=== PATIENT | male | born 1985 | race Caucasian/White ===

== ENCOUNTER 2017-06-29 22:05 | Emergency (ER) | payer OTHER ==
[~2017-06-29] VITALS: Ht 162.6 cm; Wt 46.4 kg
[2017-06-29 22:15] VITALS: BP 127/93
[2017-06-29 23:02] LABS: HEMATOCRIT 43.3 % (39.2-51.8); HEMOGLOBIN 14.9 g/dL (13.7-18.0)
[2017-06-29 23:14] LABS: BLOOD UREA NITROGEN 14 mg/dL (7-18)
== END 2017-06-29 23:56 | disposition home or self-care (01) ==
LOC: ED 23:18
DX: R07.89 Other chest pain (principal); M79.1 Myalgia; M25.512 Pain in left shoulder; R11.2 Nausea with vomiting, unspecified; R42 Dizziness and giddiness; R63.4 Abnormal weight loss
CPT/HCPCS: 36415; 71020; 80048; 82550; 85025; 93005; 99285

== ENCOUNTER 2020-01-09 14:07 | Inpatient (IN) | payer OTHER ==
[~2020-01-09] VITALS: Ht 167.6 cm; Wt 52.8 kg
--- NOTE | 2020-01-09 14:38 | NUR ---
TASK RN NOTE: PT PRESENTS TO ED WITH LT SIDED RIB PAIN THAT RADATES UP TO LEFT SHOULDER WITH DEEP INSPIRATION X3 DAYS. WENT TO [facility] THRU AND FOUND TO BE 85% ON RA. WITH SUPPLEMENTAL O2 VIA NC PT REPORTS DECREASE IN SIDE PAIN. NAD NOTED AT THIS TIME. AWAITING ERMD EVAL.
[2020-01-09] MEDS ORDERED: SODIUM CHLORIDE FLUSH 10ML SYR IVF ONE (15:00)
[2020-01-09 15:49] LABS: ALANINE AMINOTRANSFERASE 64 U/L (12-78); ALBUMIN 3.5 g/dL (3.4-5.0); ANION GAP 11 mmol/L (5-15); CALCIUM 7.8 mg/dL (8.5-10.1); CHLORIDE 105 mmol/L (98-107); CREATININE 0.89 mg/dL (0.7-1.3)
[2020-01-09 15:56] LABS: ALKALINE PHOSPHATASE 66 U/L (45-117); BILIRUBIN,TOTAL 0.8 mg/dL (0.2-1.0); TOTAL PROTEIN 7.7 g/dL (6.4-8.2)
--- NOTE | 2020-01-09 16:27 | NUR ---
CHANEL AT BEDSIDE COMPLETING EKG. PT NOTED TO BE CONSISTENTLY 88 PERCENT ON RA. PLACED BACK ON 2L NC. AWAITING CT
[2020-01-09 16:28] LABS: MEAN CORPUSCULAR HEMOGLOBIN 33.3 pg (27.5-34.5); MEAN CORPUSCULAR HGB CONC 33.2 g/dL (33.2-36.2); MEAN CORPUSCULAR VOLUME 100.3 fL (81-97); PLATELET COUNT 78 x10^3/uL (130-400); RED CELL DISTRIBUTION WIDTH 14.2 % (9.4-14.8)
[2020-01-09 16:39] LABS: MD YES
[2020-01-09 16:43] LABS: BAND#(MANUAL) 0.63 x10^3/uL; BANDS%(MANUAL) 5 % (0-7); BASOS#(MANUAL) 0.25 x10^3/uL (0-0.1); BASOS% (MANUAL) 2 % (0-1); LYMPH#(MANUAL) 1.26 x10^3/uL (1-3.4); LYMPHS% (MANUAL) 10 % (22-44); METAMYELOCYTES# (MANUAL) 0.25 x10^3/uL (0-0); METAMYELOCYTES% (MANUAL) 2 % (0-1); MONOS#(MANUAL) 0.38 x10^3/uL (0.3-2.7); MONOS% (MANUAL) 3 % (2-9); SEG#(MANUAL) 9.83 x10^3/uL (1.8-6.8); SEGS% (MANUAL) 78 % (42-75)
[2020-01-09 16:46] LABS: <PLATELET ESTIMATE> DECREASED
[2020-01-09 16:47] LABS: <PLT MORPHOLOGY> NORMAL PLT MORPH
[2020-01-09 16:49] LABS: OVALOCYTES 1+
--- NOTE | 2020-01-09 16:57 | NUR ---
SPOKE WITH DR CHADWICK REGARDING STARTING SEPSIS PROTOCOL. PT AWAITING CT AND MD AWAITING RESULTS OF THAT. BELIEVES IT IS COVID AND DOES NOT WANT TO GIVE FLUIDS COVID PTS ARE FOUND TO DO BETTER KEPT DRY. ADDITIONALLY DR CHADWICK AWAITING CT TO START ANTIBIOTICS.
[2020-01-09] MEDS ORDERED: DOXYCYCLINE 100 MG in DEXTROSE 5% 250 ML IV ONE (17:00)
[2020-01-09] MEDS ORDERED: CEFTRIAXONE PMX 1GM/50ML 50 ML IV ONE (17:00)
[2020-01-09 17:03] LABS: PROTIME 10.2 Seconds (9.6-11.5)
[2020-01-09] MEDS ORDERED: CEFTRIAXONE PMX 1GM/50ML 50 ML ONE (17:08)
[2020-01-09] MEDS ORDERED: OMNIPAQUE 350 MG/ML, 100ML BOTTLE ONE (17:24)
[2020-01-09] MEDS ORDERED: MAGNESIUM SULFATE PMX 2GM/50ML 50 ML ONE (17:59)
[2020-01-09] MEDS ORDERED: MAGNESIUM SULFATE PMX 2GM/50ML 50 ML IV ONE (18:00)
[2020-01-09] MEDS ORDERED: CLON2TAB PO (18:12)
[2020-01-09] MEDS ORDERED: BUPR1FIL3 SL (18:13)
--- NOTE | 2020-01-09 18:50 | NUR ---
REPORT FROM CAMILLE SARABIA. ASSUMING CARE AT THIS TIME.
--- NOTE | 2020-01-09 18:55 | NUR ---
REPORT TO UMANG OBRIEN
--- NOTE | 2020-01-09 19:25 | NUR ---
pt resting in room. vss. no need expressed. call light within reach. awaiting room assignment.
[2020-01-09] MEDS ORDERED: hydrALAzine 20 MG/ML, 1ML IVPush PRN (20:30)
[2020-01-09] MEDS ORDERED: LORazepam 1MG TABLET PO PRN (20:30)
[2020-01-09] MEDS ORDERED: PROMETHAZINE 25 MG/ML, 1ML IM PRN (20:30)
[2020-01-09] MEDS ORDERED: CALCIUM GLUCONATE 4.6 MEQ in SODIUM CHLORIDE 0.9% 50 ML IV ONE (21:00)
--- NOTE | 2020-01-09 21:26 | NUR ---
report to CAMILLE Vela. pt ready for transport.
--- NOTE | 2020-01-09 23:10 | NUR ---
TRANSPORTED PT TO ADMIT BED
[2020-01-09 23:12] VITALS: BP 132/91
[2020-01-09] MEDS: POTASSIUM CHLORIDE 20 MEQ, MAGNESIUM SULFATE 2 GM, THIAMINE 200 MG, MVI ADULT 10 ML, FO... IV SCH (23:23)
[2020-01-09] MEDS: ENOXAPARIN 40 MG/0.4 ML SQ SCH (23:26)
[2020-01-10 01:04] VITALS: BP 128/85
[2020-01-10] MEDS ORDERED: POTASSIUM PHOSPHATE 22 MEQ in SODIUM CHLORIDE 0.9% 500 ML IV ONE (02:00)
[2020-01-10 05:31] LABS: ANION GAP 4 mmol/L (5-15); CALCIUM 8.3 mg/dL (8.5-10.1); CHLORIDE 102 mmol/L (98-107)
[2020-01-10 05:35] LABS: ALANINE AMINOTRANSFERASE 55 U/L (12-78); ALKALINE PHOSPHATASE 67 U/L (45-117); BILIRUBIN,TOTAL 1.3 mg/dL (0.2-1.0); CREATININE 0.69 mg/dL (0.7-1.3); TOTAL PROTEIN 7.1 g/dL (6.4-8.2)
[2020-01-10 06:04] LABS: MEAN CORPUSCULAR HEMOGLOBIN 33.5 pg (27.5-34.5); MEAN CORPUSCULAR HGB CONC 33.2 g/dL (33.2-36.2); MEAN CORPUSCULAR VOLUME 100.7 fL (81-97); RED BLOOD COUNT 3.88 x10^6/uL (4.38-5.82); RED CELL DISTRIBUTION WIDTH 14.1 % (9.4-14.8)
[2020-01-10 06:28] LABS: BASOPHILS # (AUTO) 0.01 x10^3/uL (0-0.1); BASOPHILS % (AUTO) 0 % (0-1); EOSINOPHILS # (AUTO) 0.01 x10^3/uL (0-0.4); EOSINOPHILS % (AUTO) 0 % (1-7); LYMPHOCYTES # (AUTO) 1.04 x10^3/uL (1-3.4); LYMPHOCYTES % (AUTO) 14 % (22-44); MD SCAN; MEAN PLATELET VOLUME 9.1 fL (7.4-10.4); MONOCYTES # (AUTO) 0.44 x10^3/uL (0.2-0.8); MONOCYTES % (AUTO) 6 % (2-9); NEUTROPHILS # (AUTO) 5.91 x10^3/uL (1.8-6.8); NEUTROPHILS % (AUTO) 80 % (42-75); PLATELET COUNT 56 x10^3/uL (130-400)
[2020-01-10 06:57] VITALS: BP 126/90
[2020-01-10] MEDS: DOXYCYCLINE 100MG TABLET PO SCH ×2 (07:51→21:26)
[2020-01-10] MEDS ORDERED: LORazepam 1MG TABLET PO PRN ×3 (12:00)
[2020-01-10] MEDS ORDERED: LORazepam 0.5MG TABLET PO PRN (12:00)
[2020-01-10] MEDS ORDERED: NICOTINE 21 MG/24 HR PATCH.TD24 TD ONE (12:00)
[2020-01-10 12:25] VITALS: BP 136/99
[2020-01-10] MEDS: NICOTINE 21 MG/24 HR PATCH.TD24 TD SCH (12:34)
[2020-01-10] MEDS: LORazepam 1MG TABLET PO PRN (12:34)
[2020-01-10] MEDS ORDERED: CEFTRIAXONE PMX 1GM/50ML 50 ML IV SCH (17:00)
[2020-01-10] MEDS: OXYcodone IR 5MG TABLET PO PRN ×2 (17:34→21:27)
[2020-01-10 19:52] VITALS: BP 142/92
[2020-01-10] MEDS: POTASSIUM CHLORIDE 20 MEQ, MAGNESIUM SULFATE 2 GM, THIAMINE 200 MG, MVI ADULT 10 ML, FO... IV SCH (21:26)
[2020-01-10] MEDS: ENOXAPARIN 40 MG/0.4 ML SQ SCH (21:26)
[2020-01-11 01:57] VITALS: BP 162/94
[2020-01-11] MEDS: LORazepam 1MG TABLET PO PRN (01:58)
[2020-01-11 04:51] LABS: MEAN CORPUSCULAR HEMOGLOBIN 33.4 pg (27.5-34.5); MEAN CORPUSCULAR HGB CONC 33.1 g/dL (33.2-36.2); MEAN CORPUSCULAR VOLUME 101.2 fL (81-97); MEAN PLATELET VOLUME 9.5 fL (7.4-10.4); PLATELET COUNT 66 x10^3/uL (130-400); RED BLOOD COUNT 3.83 x10^6/uL (4.38-5.82)
[2020-01-11 04:55] LABS: ANION GAP 5 mmol/L (5-15); CALCIUM 8.4 mg/dL (8.5-10.1); CHLORIDE 105 mmol/L (98-107); CREATININE 0.58 mg/dL (0.7-1.3)
[2020-01-11 06:02] LABS: BASOPHILS # (AUTO) 0.01 x10^3/uL (0-0.1); BASOPHILS % (AUTO) 0 % (0-1); EOSINOPHILS % (AUTO) 0 % (1-7); LYMPHOCYTES # (AUTO) 0.61 x10^3/uL (1-3.4); LYMPHOCYTES % (AUTO) 13 % (22-44); MD SCAN; MONOCYTES # (AUTO) 0.38 x10^3/uL (0.2-0.8); MONOCYTES % (AUTO) 8 % (2-9); NEUTROPHILS # (AUTO) 3.76 x10^3/uL (1.8-6.8); NEUTROPHILS % (AUTO) 79 % (42-75)
[2020-01-11] MEDS: POTASSIUM CHLORIDE 20 MEQ, MAGNESIUM SULFATE 2 GM, THIAMINE 200 MG, MVI ADULT 10 ML, FO... IV SCH (06:10)
[2020-01-11 07:52] VITALS: BP 142/91
[2020-01-11] MEDS: DOXYCYCLINE 100MG TABLET PO SCH (09:23)
[2020-01-11] MEDS: NICOTINE 21 MG/24 HR PATCH.TD24 TD SCH (09:23)
[2020-01-11 13:31] VITALS: BP 131/92
== END 2020-01-11 16:52 | disposition left against medical advice (07) | DRG 871 ==
LOC: ED 18:57 → EDIP 21:01 → 4NW 22:47
PROVIDERS: ADMIT Family Medicine; ATTEND Hospitalist
DX: A41.9 Sepsis, unspecified organism (principal); J96.01 Acute respiratory failure with hypoxia; J18.9 Pneumonia, unspecified organism; E87.2 Acidosis; J98.11 Atelectasis; D69.6 Thrombocytopenia, unspecified; D75.89 Other specified diseases of blood and blood-forming organs; E83.42 Hypomagnesemia; E83.51 Hypocalcemia; F17.200 Nicotine dependence, unspecified, uncomplicated; F41.1 Generalized anxiety disorder; K70.9 Alcoholic liver disease, unspecified; K76.0 Fatty (change of) liver, not elsewhere classified; Y90.8 Blood alcohol level of 240 mg/100 ml or more; F10.20 Alcohol dependence, uncomplicated; Z53.29 Procedure and treatment not carried out because of patient's decision for other reasons; R65.20 Severe sepsis without septic shock; R94.31 Abnormal electrocardiogram [ECG] [EKG]; Z90.49 Acquired absence of other specified parts of digestive tract; Z88.8 Allergy status to other drugs, medicaments and biological substances; Z11.59 Encounter for screening for other viral diseases
CPT/HCPCS: 36415; 84145; J7042; 71045; 71275; 80048; 80053; 80307; 83036; 83605; 83615; 83735; 84100; 84443; 85025; 85049; 85379; 85384; 85610; 85730; 86140; 87040; 93005; 96365; 96366; 99291; G0378; J0610; J0696; J1650; J3411; J3475; J3480; J7060; Q9967; J7040; U0001